=== PATIENT | female | born 1975 | race Caucasian/White ===

== ENCOUNTER 2020-09-20 14:56 | Emergency (ER) | payer MEDICAID ==
[2020-09-20] MEDS ORDERED: Zofran 4 MG/2 ML VIAL IV ONE (15:20)
[2020-09-20] MEDS ORDERED: MORPHINE SULFATE 4 MG INJ IV ONE (15:20)
[2020-09-20] MEDS ORDERED: TYLENOL 325 MG PO ONE (15:20)
[2020-09-20] MEDS ORDERED: Sodium Chloride 0.9% 1000 ML 1,000 ML IV STA (15:20)
[2020-09-20] MEDS ORDERED: MORPHINE SULFATE 4 MG INJ ONE (15:27)
[2020-09-20] MEDS ORDERED: Sodium Chloride 0.9% 1000 ML 1,000 ML ONE (15:27)
[2020-09-20] MEDS ORDERED: Zofran 4 MG/2 ML VIAL ONE (15:27)
[2020-09-20] MEDS ORDERED: TYLENOL 325 MG ONE (15:27)
[2020-09-20 15:54] LABS: Absolute Neutrophil Ct (ANC) 2.85 (1.4-6.9); BASOPHIL % 0.4 % (0.0-0.4); Basophil (Absolute #) 0.02 (0-0.4); Eosinophil % 3.4 % (0.00-5.0); Eosinophil (Absolute #) 0.16 (0-0.5); Hematocrit 43.6 % (35-47); Hemoglobin 13.4 gm/dl (12.0-16.0); Lymphocyte (Absolute #) 1.05 (1.0-4.6); Lymphocytes % 22.6 % (24.0-44.0); Mean Corpuscular Hemoglobin 29.5 pg (26-32); Mean Corpuscular Hgb Concent. 30.7 g/dl (32-36); Mean Platelet Volume 9.5 fl (7.5-11.0); Monocyte (Absolute #) 0.57 (0.0-1.3); Monocytes % 12.3 % (0.0-12.0); Neutrophil % 61.3 % (36.0-66.0); Platelet Count 227 K/mm3 (150-450); Red Blood Count 4.54 M/mm3 (4.1-5.4); Red Cell Distribution Width 12.7 % (11.5-14.0); White Blood Count 4.7 K/mm3 (4.0-10.5)
[2020-09-20 16:02] LABS: Appearance SLIGHTLY CLOUDY (CLEAR); Bacteria FEW /HPF (NEGATIVE); Bilirubin NEGATIVE (NEGATIVE); Blood MODERATE Ery/ul (0-5); Epithelial Cells RARE /HPF (FEW); Glucose NEGATIVE (NEGATIVE); Ketones NEGATIVE (NEGATIVE); Leukocyte Esterase NEGATIVE (NEGATIVE); Mucus SLIGHT /HPF (NEGATIVE); Nitrite POSITIVE (NEGATIVE); Protein,Urine Dip NEGATIVE (Negative); Specific Gravity 1.023 (1.005-1.025); Urobilinogen NEGATIVE mg/dL (0-1)
[2020-09-20 16:16] LABS: ALKALINE PHOSPHATASE 96 U/L (38-126); ANION GAP 8.9 MEQ/L (5-15); BLOOD UREA NITROGEN 14 mg/dL (7-17); CHLORIDE 102 mmol/L (98-107); Calcium 8.7 mg/dL (8.4-10.2); Carbon Dioxide 29 mmol/L (22-30); Creatinine 1 0.62 mg/dL (0.52-1.04); EST GLOMERULAR FILTRATION RATE > 60.0 ML/MIN; Glucose 100 mg/dL (74-106); LIPASE 22 U/L (23-300); SGOT/AST 24 U/L (14-36); SGPT/ALT 25 U/L (0-35); SODIUM 136 mmol/L (137-145); Total Protein 6.9 g/dL (6.3-8.2)
--- NOTE | 2020-09-20 16:32 | XRAY ---
Indication: General body ache. Comparison: None 2 view abdomen nonacute and nonobstructed with moderate diffuse fecal debris and cholecystectomy clips. Remaining solid organs and osseous structures unremarkable. Single PA chest demonstrates normal heart, lungs, and bony thorax with incidental tiny calcified granulomas.
--- NOTE | 2020-09-20 16:40 | ERPHSYRPT ---
- History of Present Illness Time Seen by Provider: 09/20/20 15:00 Source: patient Exam Limitations: no limitations Patient Subjective Stated Complaint: pt here for pain under left breast with cough started yesterday with some nasuea, she states she is worried aboout pancr eatitis Triage Nursing Assessment: pt alert, resp easy, skin w/d/p, abd soft, no edma noted Physician History: 45 years old female presented in the ER with chief complaint of generalized body ache, fatigue and tiredness since yesterday. She also reports having moderate dry cough, low-grade subjective fever and chills last night. Denies any shor tness of breath. No chest pain or palpitations. Has chronic abdominal pain which is not any worse than usual. No difficulty urination. No sore throat but has mild nasal congestion. Denies any sick contact. Did not receive Covid vaccine yet. Timing/Duration: yesterday, gradual onset, worse Cough Quality/Degree: mild, dry cough Possible Cause: no prior episodes Modifying Factors: Improves With: coughing. Worsens With: activity Associated Symptoms: fever, chills, muscle aches, nasal congestion, No chest pain/soreness, No shortness of breath Allergies/Adverse Reactions: Iodinated Contrast Media Allergy (Verified 09/20/20 15:06) Hx Tetanus, Diphtheria Vaccination/Date Given: No Hx Influenza Vaccination/Date Given: No Hx Pneumococcal Vaccination/Date Given: No Immunizations Up to Date: Yes Travel Risk - International Travel Have you traveled outside of the country in past 3 weeks: No - Coronavirus Screening Are you exhibiting any of the following symptoms?: No Symptoms: Cough: New Onset Close contact with a COVID-19 positive Pt in past 14-21 Days: No - Vaccine Status Have you recieved a Covid-19 vaccination: No - Review of Systems Constitutional: Fever, Chills, Fatigue, Weakness Eyes: No Symptoms Ears, Nose, & Throat: Nose Congestion Respiratory: Cough, No Dyspnea, No Wheezing Cardiac: No Symptoms Abdominal/Gastrointestinal: Abdominal Pain, No Nausea, No Vomiting, No Diarrhea Genitourinary Symptoms: No Symptoms Musculoskeletal: Myalgias Skin: No Symptoms Neurological: No Symptoms Psychological: No Symptoms Endocrine: No Symptoms Hematologic/Lymphatic: No Symptoms Immunological/Allergic: No Symptoms - Past Medical History Pertinent Past Medical History: Yes Endocrine Medical History: Thyroid Cancer GI Medical History: Pancreatitis Female Reproductive Disorders: Cervical Cancer - Past Surgical History Past Surgical History: Yes Gastrointestinal: Appendectomy, Cholecystectomy Female Surgical History: Hysterectomy Other Surgical History: wibble surgery - Social History Smoking Status: Current every day smoker Exposure to second hand smoke: Yes Drug Use: none Patient Lives Alone: No - Female History Hx Last Menstrual Period: hyster Hx Now: No - Nursing Vital Signs Nursing Vital Signs: Initial Vital Signs Temperature 98.5 F 09/20/20 14:58 Pulse Rate 116 H 09/20/20 14:58 Respiratory Rate 18 09/20/20 14:58 Blood Pressure 106/91 09/20/20 14:58 O2 Sat by Pulse Oximetry 100 09/20/20 14:58 Pain Scale Pain Intensity 6 - Physical Exam General Appearance: no apparent distress, alert Eye Exam: PERRL/EOMI, eyes nml inspection Ears, Nose, Throat Exam: normal ENT inspection, pharyngeal erythema Neck Exam: normal inspection, non-tender, supple, full range of motion Respiratory Exam: normal breath sounds, lungs clear, No diminished breath sounds Cardiovascular Exam: normal heart sounds, tachycardia Gastrointestinal/Abdomen Exam: soft, normal bowel sounds, No tenderness Back Exam: normal inspection, normal range of motion Extremity Exam: normal inspection, normal range of motion, pelvis stable Neurologic Exam: alert, oriented x 3, cooperative, account manager education II-XII nml as tested Skin Exam: normal color SpO2 Interpretation: normal SpO2: 100 O2 Delivery: Room Air Ordered Tests: Active Orders 24 hr Category Date Time Status IV Insertion STAT Care 09/20/20 15:20 Active NPO (ED) STAT Care 09/20/20 15:20 Active OBSTR/ACUTE ABDOMEN SERIES Stat Exams 09/20/20 15:20 Completed BLOOD CULTURE Stat Lab 09/20/20 15:40 Received CBC W DIFF Stat Lab 09/20/20 15:40 Completed CMP Stat Lab 09/20/20 15:40 Completed CULTURE,URINE Stat Lab 09/20/20 15:27 Received LIPASE Stat Lab 09/20/20 15:40 Completed Lactic Acid Stat Lab 09/20/20 15:20 Completed UA W/RFX UR CULTURE Stat Lab 09/20/20 15:27 Completed Medication Summary Discontinued Medications Generic Name Dose Route Start Last Admin Trade Name Freq PRN Reason Stop Dose Admin Acetaminophen 975 mg 09/20/20 15:20 09/20/20 15:29 Tylenol 325 Mg PO 09/20/20 15:21 975 mg STAT ONE Administration Acetaminophen Confirm 09/20/20 15:27 Tylenol 325 Mg Administered 09/20/20 15:28 Dose 975 mg .ROUTE .STK-MED ONE Ciprofloxacin 500 mg 09/20/20 16:49 09/20/20 17:03 Cipro 500 Mg PO 09/20/20 16:50 500 mg ONCE STA Administration Ciprofloxacin Confirm 09/20/20 17:01 Cipro 500 Mg Administered 09/20/20 17:02 Dose 500 mg .ROUTE .STK-MED ONE Sodium Chloride 1,000 mls @ 999 mls/hr 09/20/20 15:20 09/20/20 16:40 Sodium Chloride 0.9% 1000 Ml IV 09/20/20 16:20 Infused .Q1H1M STA Infusion Sodium Chloride Confirm 09/20/20 15:27 Sodium Chloride 0.9% 1000 Ml Administered 09/20/20 15:28 Dose 1,000 mls @ ud .ROUTE .STK-MED ONE Morphine Sulfate 4 mg 09/20/20 15:20 09/20/20 15:29 Morphine Sulfate 4 Mg Inj IV 09/20/20 15: 4 mg STAT ONE Administration Morphine Sulfate Confirm 09/20/20 15:27 Morphine Sulfate 4 Mg Inj Administered 09/20/20 15:28 Dose 4 mg .ROUTE .STK-MED ONE Ondansetron HCl 4 mg 09/20/20 15:20 09/20/20 15:29 Zofran 4 Mg/2 Ml Vial IV 09/20/20 15: 4 mg STAT ONE Administration Ondansetron HCl Confirm 09/20/20 15:27 Zofran 4 Mg/2 Ml Vial Administered 09/20/20 15:28 Dose 4 mg .ROUTE .STK-MED ONE Lab/Rad Data: Laboratory Result Diagrams 09/20/20 15:40 09/20/20 15:40 Laboratory Results 09/20/20 09/20/20 09/20/20 Range/Units 15:40 15:40 15:27 WBC 4.7 (4.0-10.5) K/mm3 RBC 4.54 (4.1-5.4) M/mm3 Hgb 13.4 (12.0-16.0) gm/dl Hct 43.6 (35-47) % MCV 96.0 (78-100) fl MCH 29.5 (26-32) pg MCHC 30.7 L (32-36) g/dl RDW 12.7 (11.5-14.0) % Plt Count 227 (150-450) K/mm3 MPV 9.5 (7.5-11.0) fl Gran % 61.3 (36.0-66.0) % Eos # (Auto) 0.16 (0-0.5) Absolute Lymphs (auto) 1.05 (1.0-4.6) Absolute Monos (auto) 0.57 (0.0-1.3) Lymphocytes % 22.6 L (24.0-44.0) % Monocytes % 12.3 H (0.0-12.0) % Eosinophils % 3.4 (0.00-5.0) % Basophils % 0.4 (0.0-0.4) % Absolute Granulocytes 2.85 (1.4-6.9) Basophils # 0.02 (0-0.4) Sodium 136 L (137-145) mmol/L Potassium 4.0 (3.5-5.1) mmol/L Chloride 102 (98-107) mmol/L Carbon Dioxide 29 (22-30) mmol/L Anion Gap 8.9 (5-15) MEQ/L BUN 14 (7-17) mg/dL Creatinine 0.62 (0.52-1.04) mg/dL Estimated GFR > 60.0 ML/MIN Glucose 100 (74-106) mg/dL Lactic Acid (0.4-2.0) Calcium 8.7 (8.4-10.2) mg/dL Total Bilirubin 0.30 (0.2-1.3) mg/dL AST 24 (14-36) U/L ALT 25 (0-35) U/L Alkaline Phosphatase 96 (38-126) U/L Serum Total Protein 6.9 (6.3-8.2) g/dL Albumin 4.0 (3.5-5.0) g/dL Lipase 22 L (23-300) U/L Urine Color YELLOW (YELLOW) Urine Appearance SLIGHTLY CLOUDY (CLEAR) Urine pH 5.0 (5-6) Ur Specific [place] 1.023 (1.005-1.025) Urine Protein NEGATIVE (Negative) Urine Ketones NEGATIVE (NEGATIVE) Urine Blood MODERATE (0-5) Paulo/ul Urine Nitrite POSITIVE (NEGATIVE) Urine Bilirubin NEGATIVE (NEGATIVE) Urine Urobilinogen NEGATIVE (0-1) mg/dL Ur Leukocyte Esterase NEGATIVE (NEGATIVE) Urine WBC (Auto) 6-10 (0-5) /HPF Urine RBC (Auto) 3-5 (0-2) /HPF U Epithel Cells (Auto) RARE (FEW) /HPF Urine Bacteria (Auto) FEW (NEGATIVE) /HPF Urine Mucus (Auto) SLIGHT (NEGATIVE) /HPF Urine Culture Reflexed YES (NO) Urine Glucose NEGATIVE (NEGATIVE) mg/dL 09/20/20 Range/Units 15:20 WBC (4.0-10.5) K/mm3 RBC (4.1-5.4) M/mm3 Hgb (12.0-16.0) gm/dl Hct (35-47) % MCV (78-100) fl MCH (26-32) pg MCHC (32-36) g/dl RDW (11.5-14.0) % Plt Count (150-450) K/mm3 MPV (7.5-11.0) fl Gran % (36.0-66.0) % Eos # (Auto) (0-0.5) Absolute Lymphs (auto) (1.0-4.6) Absolute Monos (auto) (0.0-1.3) Lymphocytes % (24.0-44.0) % Monocytes % (0.0-12.0) % Eosinophils % (0.00-5.0) % Basophils % (0.0-0.4) % Absolute Granulocytes (1.4-6.9) Basophils # (0-0.4) Sodium (137-145) mmol/L Potassium (3.5-5.1) mmol/L Chloride (98-107) mmol/L Carbon Dioxide (22-30) mmol/L Anion Gap (5-15) MEQ/L BUN (7-17) mg/dL Creatinine (0.52-1.04) mg/dL Estimated GFR ML/MIN Glucose (74-106) mg/dL Lactic Acid 1.2 (0.4-2.0) Calcium (8.4-10.2) mg/dL Total Bilirubin (0.2-1.3) mg/dL AST (14-36) U/L ALT (0-35) U/L Alkaline Phosphatase (38-126) U/L Serum Total Protein (6.3-8.2) g/dL Albumin (3.5-5.0) g/dL Lipase (23-300) U/L Urine Color (YELLOW) Urine Appearance (CLEAR) Urine pH (5-6) Ur Specific [place] (1.005-1.025) Urine Protein (Negative) Urine Ketones (NEGATIVE) Urine Blood (0-5) Paulo/ul Urine Nitrite (NEGATIVE) Urine Bilirubin (NEGATIVE) Urine Urobilinogen (0-1) mg/dL Ur Leukocyte Esterase (NEGATIVE) Urine WBC (Auto) (0-5) /HPF Urine RBC (Auto) (0-2) /HPF U Epithel Cells (Auto) (FEW) /HPF Urine Bacteria (Auto) (NEGATIVE) /HPF Urine Mucus (Auto) (NEGATIVE) /HPF Urine Culture Reflexed (NO) Urine Glucose (NEGATIVE) mg/dL - Progress Progress: improved, re-examined Air Movement: good Progress Note: 09/20/20 17:36 45 years old is evaluated for generalized body aches, fatigue and tiredness. She is given fluid bolus and symptomatic treatment for pain, on reevaluation patient is sleeping comfortably. Work-up is grossly negative except for some element of UTI and started on Cipro. She might have viral etiology symptoms and COVID-19 testing is obtained. She is not in distress, nontoxic appearance, do not think patient needs to be admitted or needs any further work-up in the ER and is stable for discharge with outpatient follow-up. Discussed signs symptoms of worsening needing return to ER which she seemed understanding. Blood Culture(s) Obtained: Yes Antibiotics given: Yes Counseled pt/family regarding: lab results, diagnosis, need for follow-up, rad results - Departure Departure Disposition: Home Clinical Impression: Acute UTI, Myalgia Condition: Stable Critical Care Time: No Referrals: NATALI ROBLES [Primary Care Provider] - (1-2 days for reevaluation) Instructions: Cough, Adult (DC), Viral Syndrome (DC) Additional Instructions: Drink plenty of fluids. Take Tylenol/ibuprofen as needed. Follow contact/droplet precautions until your COVID-19 test is back. Follow-up with primary care physician for reevaluation. Return to ER for any worsening. Prescriptions: Ciprofloxacin [Cipro 500 MG] 500 mg PO BID #14 tablet
[2020-09-20] MEDS ORDERED: Cipro 500 MG PO STA (16:49)
[2020-09-20] MEDS ORDERED: Cipro 500 MG ONE (17:01)
[2020-09-20 17:02] VITALS: BP 117/86; PULSE 80
[2020-09-20 17:38] VITALS: O2SAT 100
== END 2020-09-20 18:36 | disposition home or self-care (01) ==
LOC: ED 14:56
DX: N39.0 Urinary tract infection, site not specified (principal)
CPT/HCPCS: 36000; 36415; 74022; 80053; 81001; 83605; 83690; 85025; 87040; 87077; 87086; 87186; 96360; 96374; 96375; 99284; U0003; J2270; J2405; A9270-GY

== ENCOUNTER 2020-10-04 10:19 | Emergency (ER) | payer MEDICAID ==
[2020-10-04] MEDS ORDERED: Sodium Chloride 0.9% 1000 ML 1,000 ML IV STA (10:48)
[2020-10-04] MEDS ORDERED: MORPHINE SULFATE 4 MG INJ IV ONE (10:48)
[2020-10-04] MEDS ORDERED: Zofran 4 MG/2 ML VIAL IV ONE (10:48)
[2020-10-04] MEDS ORDERED: Zofran 4 MG/2 ML VIAL ONE (10:59)
[2020-10-04] MEDS ORDERED: MORPHINE SULFATE 4 MG INJ ONE (10:59)
[2020-10-04] MEDS ORDERED: Sodium Chloride 0.9% 1000 ML 1,000 ML ONE (10:59)
[2020-10-04 11:10] LABS: Absolute Neutrophil Ct (ANC) 3.19 (1.4-6.9); BASOPHIL % 0.2 % (0.0-0.4); Basophil (Absolute #) 0.01 (0-0.4); Eosinophil % 2.4 % (0.00-5.0); Eosinophil (Absolute #) 0.12 (0-0.5); Hematocrit 43.6 % (35-47); Hemoglobin 13.5 gm/dl (12.0-16.0); Lymphocyte (Absolute #) 1.37 (1.0-4.6); Lymphocytes % 27.5 % (24.0-44.0); Mean Corpuscular Hemoglobin 29.4 pg (26-32); Mean Platelet Volume 10.1 fl (7.5-11.0); Monocyte (Absolute #) 0.29 (0.0-1.3); Monocytes % 5.8 % (0.0-12.0); Neutrophil % 64.1 % (36.0-66.0); Platelet Count 305 K/mm3 (150-450); Red Blood Count 4.59 M/mm3 (4.1-5.4); Red Cell Distribution Width 12.6 % (11.5-14.0)
[2020-10-04 11:12] LABS: Appearance CLOUDY (CLEAR); Bilirubin NEGATIVE (NEGATIVE); Blood SMALL Ery/ul (0-5); Epithelial Cells MODERATE /HPF (FEW); Glucose NEGATIVE (NEGATIVE); Ketones TRACE (NEGATIVE); Leukocyte Esterase NEGATIVE (NEGATIVE); Mucus SLIGHT /HPF (NEGATIVE); Nitrite NEGATIVE (NEGATIVE); Protein,Urine Dip NEGATIVE (Negative); Specific Gravity 1.027 (1.005-1.025); Urobilinogen 2 mg/dL (0-1)
[2020-10-04 11:25] LABS: ALBUMIN 4.5 g/dL (3.5-5.0); ALKALINE PHOSPHATASE 81 U/L (38-126); AMYLASE 49 U/L (30-110); ANION GAP 12.6 MEQ/L (5-15); BLOOD UREA NITROGEN 16 mg/dL (7-17); CHLORIDE 104 mmol/L (98-107); Carbon Dioxide 28 mmol/L (22-30); Creatinine 1 0.65 mg/dL (0.52-1.04); EST GLOMERULAR FILTRATION RATE > 60.0 ML/MIN; Glucose 104 mg/dL (74-106); LIPASE 40 U/L (23-300); Potassium 4.2 mmol/L (3.5-5.1); SGOT/AST 23 U/L (14-36); SGPT/ALT 19 U/L (0-35); SODIUM 140 mmol/L (137-145)
--- NOTE | 2020-10-04 11:26 | XRAY ---
Indication: Abdomen/left flank pain. History of cervical/uterine and thyroid cancer. Multiple contiguous axial images obtained through the abdomen and pelvis without contrast. Comparison: None Lung bases demonstrates a few tiny calcified granulomas. No infiltrate or effusion. Heart is not enlarged. Reported Whipple procedure, cholecystectomy, appendectomy, and hysterectomy. Stomach is distended with food/fluid. Noncontrasted bowel loops nonobstructed. Moderate diffuse scattered colonic fecal debris throughout. No free fluid/air. Remaining liver, pancreas, spleen, adrenal glands, kidneys, ureters, bladder, and aorta are unremarkable for noncontrast exam. Osseous structures intact with mild L4-L5 degenerative disc disease. No ventral or inguinal hernias. Impression: 1. Diffuse fecal stasis, L4-L5 degenerative disc disease, and old granulomatous disease. 2. Remaining CT abdomen/pelvis without contrast exam is negative.
--- NOTE | 2020-10-04 11:41 | ERPHSYRPT ---
- History of Present Illness Time Seen by Provider: 10/04/20 10:23 Historian: patient Exam Limitations: no limitations Patient Subjective Stated Complaint: abd pain x2 days Triage Nursing Assessment: pt to ED c/o abd pain that originates in middle of abd and radiates around to L side and back/ "I felt this same way last time my stents needed replaced." pt reports whipple procedure done 2017 and stents last replaced 8 months ago. rates 9/10 pain that worsens with deep breaths. also c/o NV onset yesterday. Physician History: 45 years old female with history of Whipple procedure presented in the ER with epigastric and left-sided abdominal pain for the last 2 to 3 days, moderate to severe intensity, sharp in nature, nonradiating, constant without vomiting but has nausea. Denies any constipation or diarrhea. No fever or chills reported. Patient reports having similar symptoms few months back when she needed stent placement in [place]. Timing/Duration: day(s) (2), constant, gradual onset, worse Activities at Onset: rest Quality: cramping, sharpness Abdominal Pain Onset Location: LUQ, LLQ, epigastric Pain Radiation: no radiation Severity of Pain-Max: moderate Severity of Pain-Current: moderate Modifying Factors: Improves With: rest. Worsens With: coughing, movement, palpation Associated Symptoms: nausea, No vomiting Previous symptoms: same symptoms as today Allergies/Adverse Reactions: Iodinated Contrast Media Allergy (Verified 10/04/20 10:29) Home Medications: No Reportable Medications [No Reported Medications] 10/04/20 [History] Hx Tetanus, Diphtheria Vaccination/Date Given: Yes Hx Influenza Vaccination/Date Given: Yes Hx Pneumococcal Vaccination/Date Given: No Immunizations Up to Date: Yes Travel Risk - International Travel Have you traveled outside of the country in past 3 weeks: No - Coronavirus Screening Are you exhibiting any of the following symptoms?: Yes Symptoms: Vomiting/Diarrhea Close contact with a COVID-19 positive Pt in past 14-21 Days: No - Vaccine Status Have you recieved a Covid-19 vaccination: No - Review of Systems Constitutional: No Symptoms Eyes: No Symptoms Ears, Nose, & Throat: No Symptoms Respiratory: No Symptoms Cardiac: No Symptoms Abdominal/Gastrointestinal: Abdominal Pain, Nausea Genitourinary Symptoms: No Symptoms Musculoskeletal: No Symptoms Skin: No Symptoms Neurological: No Symptoms Psychological: No Symptoms Endocrine: No Symptoms Hematologic/Lymphatic: No Symptoms Immunological/Allergic: No Symptoms - Past Medical History Pertinent Past Medical History: Yes Endocrine Medical History: Thyroid Cancer GI Medical History: Pancreatitis Female Reproductive Disorders: Cervical Cancer - Past Surgical History Past Surgical History: Yes Gastrointestinal: Appendectomy, Cholecystectomy Female Surgical History: Hysterectomy Other Surgical History: whipple surgery - Social History Smoking Status: Light tobacco smoker How long have you smoked: years Exposure to second hand smoke: Yes Drug Use: none Patient Lives Alone: No - Female History Hx Now: (unkn) - Nursing Vital Signs Nursing Vital Signs: Initial Vital Signs Temperature 97.9 F 10/04/20 10:29 Pulse Rate 112 H 10/04/20 10:29 Respiratory Rate 20 10/04/20 10:29 Blood Pressure 148/85 10/04/20 10:29 O2 Sat by Pulse Oximetry 94 L 10/04/20 10:29 Pain Scale Pain Intensity 0 - Physical Exam General Appearance: no apparent distress, alert Eye Exam: eyes nml inspection Ears, Nose, Throat Exam: normal ENT inspection, pharynx normal Neck Exam: normal inspection, non-tender, full range of motion Respiratory Exam: normal breath sounds, lungs clear Cardiovascular Exam: normal heart sounds, tachycardia Back Exam: normal inspection, normal range of motion, No CVA tenderness Extremity Exam: normal inspection, normal range of motion Neurologic Exam: alert, oriented x 3, cooperative Skin Exam: normal color SpO2 Interpretation: normal SpO2: 95 O2 Delivery: Room Air Ordered Tests: Active Orders 24 hr Category Date Time Status IV Insertion STAT Care 10/04/20 10:48 Completed NPO (ED) STAT Care 10/04/20 10:48 Completed ABDOMEN AND PELVIS W/0 CONTRAS [CT] Stat Exams 10/04/20 10:49 Completed AMYLASE Stat Lab 10/04/20 10:30 Completed CBC W DIFF Stat Lab 10/04/20 10:30 Completed CMP Stat Lab 10/04/20 10:30 Completed LIPASE Stat Lab 10/04/20 10:30 Completed UA W/RFX UR CULTURE Stat Lab 10/04/20 10:58 Completed Medication Summary Discontinued Medications Generic Name Dose Route Start Last Admin Trade Name Freq PRN Reason Stop Dose Admin Sodium Chloride 1,000 mls @ 999 mls/hr 10/04/20 10:48 10/04/20 12:28 Sodium Chloride 0.9% 1000 Ml IV 10/04/20 11:48 Infused .Q1H1M STA Infusion Sodium Chloride Confirm 10/04/20 10:59 Sodium Chloride 0.9% 1000 Ml Administered 10/04/20 11:00 Dose 1,000 mls @ ud .ROUTE .STK-MED ONE Morphine Sulfate 4 mg 10/04/20 10:48 10/04/20 11:00 Morphine Sulfate 4 Mg Inj IV 10/04/20 10:49 4 mg STAT ONE Administration Morphine Sulfate Confirm 10/04/20 10:59 Morphine Sulfate 4 Mg Inj Administered 10/04/20 11:00 Dose 4 mg .ROUTE .STK-MED ONE Ondansetron HCl 4 mg 10/04/20 10:48 10/04/20 11:00 Zofran 4 Mg/2 Ml Vial IV 10/04/20 10:49 4 mg STAT ONE Administration Ondansetron HCl Confirm 10/04/20 10:59 Zofran 4 Mg/2 Ml Vial Administered 10/04/20 11:00 Dose 4 mg .ROUTE .STK-MED ONE Lab/Rad Data: Laboratory Result Diagrams 10/04/20 10:30 10/04/20 10:30 Laboratory Results 10/04/20 10/04/20 10/04/20 Range/Units 10:58 10:30 10:30 WBC 5.0 (4.0-10.5) K/mm3 RBC 4.59 (4.1-5.4) M/mm3 Hgb 13.5 (12.0-16.0) gm/dl Hct 43.6 (35-47) % MCV 95.0 (78-100) fl MCH 29.4 (26-32) pg MCHC 31.0 L (32-36) g/dl RDW 12.6 (11.5-14.0) % Plt Count 305 (150-450) K/mm3 MPV 10.1 (7.5-11.0) fl Gran % 64.1 (36.0-66.0) % Eos # (Auto) 0.12 (0-0.5) Absolute Lymphs (auto) 1.37 (1.0-4.6) Absolute Monos (auto) 0.29 (0.0-1.3) Lymphocytes % 27.5 (24.0-44.0) % Monocytes % 5.8 (0.0-12.0) % Eosinophils % 2.4 (0.00-5.0) % Basophils % 0.2 (0.0-0.4) % Absolute Granulocytes 3.19 (1.4-6.9) Basophils # 0.01 (0-0.4) Sodium 140 (137-145) mmol/L Potassium 4.2 (3.5-5.1) mmol/L Chloride 104 (98-107) mmol/L Carbon Dioxide 28 (22-30) mmol/L Anion Gap 12.6 (5-15) MEQ/L BUN 16 (7-17) mg/dL Creatinine 0.65 (0.52-1.04) mg/dL Estimated GFR > 60.0 ML/MIN Glucose 104 (74-106) mg/dL Calcium 9.0 (8.4-10.2) mg/dL Total Bilirubin 0.30 (0.2-1.3) mg/dL AST 23 (14-36) U/L ALT 19 (0-35) U/L Alkaline Phosphatase 81 (38-126) U/L Serum Total Protein 7.0 (6.3-8.2) g/dL Albumin 4.5 (3.5-5.0) g/dL Amylase 49 (30-110) U/L Lipase 40 (23-300) U/L Urine Color YELLOW (YELLOW) Urine Appearance CLOUDY (CLEAR) Urine pH 5.0 (5-6) Ur Specific [place] 1.027 (1.005-1.025) Urine Protein NEGATIVE (Negative) Urine Ketones TRACE (NEGATIVE) Urine Blood SMALL (0-5) Paulo/ul Urine Nitrite NEGATIVE (NEGATIVE) Urine Bilirubin NEGATIVE (NEGATIVE) Urine Urobilinogen 2 (0-1) mg/dL Ur Leukocyte Esterase NEGATIVE (NEGATIVE) Urine WBC (Auto) 3-5 (0-5) /HPF Urine RBC (Auto) 6-10 (0-2) /HPF U Epithel Cells (Auto) MODERATE (FEW) /HPF Urine Bacteria (Auto) NONE (NEGATIVE) /HPF Urine Mucus (Auto) SLIGHT (NEGATIVE) /HPF Urine Culture Reflexed NO (NO) Urine Glucose NEGATIVE (NEGATIVE) mg/dL - Progress Progress: improved Progress Note: 10/04/20 11:39 Patient improved with symptomatic treatment, negative work-up for acute abdomen including CT abdomen pelvis. Does have constipation which could be contributing to her symptoms. Recommended supportive care and outpatient follow-up. Counseled pt/family regarding: lab results, diagnosis, need for follow-up, rad results - Departure Departure Disposition: Home Clinical Impression: Left sided abdominal pain Constipation Qualifiers: Constipation type: unspecified constipation type Qualified Code(s): K59.00 - Constipation, unspecified Condition: Stable Critical Care Time: No Referrals: NATALI ROBLES [Primary Care Provider] - Follow Up with PCP/3 days () Instructions: Acute Abdomen (Belly Pain), Adult (DC) Additional Instructions: Take Tyleno as needed for pain. Take daily MiraLAX. Follow-up with primary care for reevaluation. Return to ER for intractable abdominal pain or if develop vomiting/fever chills etc.
[2020-10-04 12:27] VITALS: BP 136/85; PULSE 95
[2020-10-04 22:35] VITALS: O2SAT 95
== END 2020-10-04 12:28 | disposition home or self-care (01) ==
LOC: ED 10:19
DX: R10.9 Unspecified abdominal pain (principal); K59.00 Constipation, unspecified
CPT/HCPCS: 36000; 36415; 74176; 80053; 81001; 82150; 83690; 85025; 96360; 96374; 96375; 99284; J2270; J2405

== ENCOUNTER 2021-06-21 17:49 | Emergency (ER) | payer MEDICAID ==
[2021-06-21] MEDS ORDERED: Sodium Chloride 0.9% 1000 ML 1,000 ML IV STA (18:06)
[2021-06-21] MEDS ORDERED: TORAdol 30 mg Injection IV ONE (18:06)
[2021-06-21] MEDS ORDERED: Sodium Chloride 0.9% 1000 ML 1,000 ML ONE (18:08)
[2021-06-21] MEDS ORDERED: TORAdol 30 mg Injection ONE (18:08)
--- NOTE | 2021-06-21 18:12 | ERPHSYRPT ---
- History of Present Illness Historian: patient Exam Limitations: no limitations Patient Subjective Stated Complaint: pt here for left side and pain that radiates to back for 2 days with n/v. Triage Nursing Assessment: pt alert, walked in, resp easy, skin w/d/p, abd soft , no edema, face mask in place Physician History: 46 yo wf w generalized, stabbing abdominal pain x 1 day. Pt has had N/V/Coffee ground emesis/dark stool without fever/diarrhea/cough/coryza/dysuria/hematuria. Pt had a Whipple procedure in 2017 in [place], [place] due to chronic pancreatitis. Pain is rated 9/10 w radiation to her back. Timing/Duration: yesterday Activities at Onset: rest Quality: sharpness, stabbing Abdominal Pain Onset Location: generalized abdomen Pain Radiation: back Severity of Pain-Max: severe Severity of Pain-Current: severe Modifying Factors: Improves With: nothing Associated Symptoms: back, loss of appetite, nausea, vomiting, No chest pain, No diaphoresis, No diarrhea, No fever/chills, No fatigue, No headache, No heart burn, No neck pain, No rash, No shortness of breath, No syncope, No weakness Previous symptoms: same symptoms as today Allergies/Adverse Reactions: Iodinated Contrast Media Allergy (Verified 06/21/21 18:01) Hx Tetanus, Diphtheria Vaccination/Date Given: Yes Hx Influenza Vaccination/Date Given: Yes Hx Pneumococcal Vaccination/Date Given: No Immunizations Up to Date: Yes Travel Risk - International Travel Have you traveled outside of the country in past 3 weeks: No - Coronavirus Screening Are you exhibiting any of the following symptoms?: No Close contact with a COVID-19 positive Pt in past 14-21 Days: No - Vaccine Status Have you recieved a Covid-19 vaccination: No - Review of Systems Constitutional: No Symptoms Eyes: No Symptoms Ears, Nose, & Throat: No Symptoms Respiratory: No Symptoms Cardiac: No Symptoms Abdominal/Gastrointestinal: Abdominal Pain, Nausea, Vomiting, Melena, Appetite Changes, No Diarrhea, No Constipation, No Hematemesis, No Hematochezia, No Dysphagia Genitourinary Symptoms: No Symptoms Musculoskeletal: No Symptoms Skin: No Symptoms Neurological: No Symptoms Psychological: No Symptoms Endocrine: No Symptoms Hematologic/Lymphatic: No Symptoms Immunological/Allergic: No Symptoms - Past Medical History Pertinent Past Medical History: Yes Endocrine Medical History: Thyroid Cancer GI Medical History: Pancreatitis Female Reproductive Disorders: Cervical Cancer - Past Surgical History Past Surgical History: Yes Gastrointestinal: Appendectomy, Cholecystectomy Female Surgical History: Hysterectomy Other Surgical History: whipple surgery - Social History Smoking Status: Light tobacco smoker How long have you smoked: years Exposure to second hand smoke: Yes Drug Use: marijuana Patient Lives Alone: No - Female History Hx Last Menstrual Period: hyster Hx Now: No - Nursing Vital Signs Nursing Vital Signs: Initial Vital Signs Temperature 97.5 F 06/21/21 17:54 Pulse Rate 83 06/21/21 17:54 Respiratory Rate 18 06/21/21 17:54 Blood Pressure 152/112 06/21/21 17:54 O2 Sat by Pulse Oximetry 99 06/21/21 17:54 Pain Scale Pain Intensity 5 Hypertensive - Physical Exam General Appearance: no apparent distress, anxiety Eye Exam: PERRL/EOMI, eyes nml inspection Ears, Nose, Throat Exam: normal ENT inspection, TMs normal, pharynx normal, moist mucous membranes Neck Exam: normal inspection, non-tender, supple, full range of motion, No meningismus, No mass, No Brudzinski, No Kernig's, No carotid bruit Respiratory Exam: normal breath sounds, lungs clear, airway intact Cardiovascular Exam: regular rate/rhythm, normal heart sounds, normal peripheral pulses, capillary refill <2 sec, No murmur Gastrointestinal/Abdomen Exam: soft, normal bowel sounds, tenderness (Diffuse TTP w guarding/No rebound), No distention Back Exam: normal inspection, normal range of motion Extremity Exam: normal inspection, normal range of motion Neurologic Exam: alert, oriented x 3, cooperative, tax adjuster II-XII nml as tested, normal mood/affect, nml cerebellar function, sensation nml Skin Exam: normal color, warm, dry, No rash Lymphatic Exam: No adenopathy SpO2 Interpretation: normal SpO2: 99 O2 Delivery: Room Air - Course Nursing assessment & vital signs reviewed: Yes - CT Exams Abdomen/Pelvis CT Interpretation: Discussed w/radiologist (CT ab-pelvis wo-diffuse fecal stasis/chronic pancreatic calcifications/Nothing acute) Ordered Tests: Active Orders 24 hr Category Date Time Status ABDOMEN AND PELVIS W/0 CONTRAS [CT] Stat Exams 06/21/21 18:59 Taken AMYLASE Stat Lab 06/21/21 18:00 Completed Alcohol [ETHYL ALCOHOL] Stat Lab 06/21/21 19:20 Completed CBC W DIFF Stat Lab 06/21/21 18:00 Completed CMP Stat Lab 06/21/21 18:00 Completed CULTURE,URINE Stat Lab 06/21/21 18:02 Received LIPASE Stat Lab 06/21/21 18:00 Completed TROPONIN Q3H Lab 06/21/21 18:00 Completed UA W/RFX UR CULTURE Stat Lab 06/21/21 18:02 Completed Urine Triage Profile Stat Lab 06/21/21 18:03 Completed Medication Summary Discontinued Medications Generic Name Dose Route Start Last Admin Trade Name Aliza PRN Reason Stop Dose Admin Fentanyl Citrate 100 mcg 06/21/21 18:42 06/21/21 18:43 Fentanyl Citrate 100 Mcg/2 Ml* Vial IV 06/21/21 18:43 100 mcg STAT ONE Administration Fentanyl Citrate Confirm 06/21/21 18:42 Fentanyl Citrate 100 Mcg/2 Ml* Vial Administered 06/21/21 18:43 Dose 100 mcg .ROUTE .STK-MED ONE Sodium Chloride 1,000 mls @ 999 mls/hr 06/21/21 18:06 06/21/21 19:14 Sodium Chloride 0.9% 1000 Ml IV 06/21/21 19:06 Infused .Q1H1M STA Infusion Sodium Chloride Confirm 06/21/21 18:08 Sodium Chloride 0.9% 1000 Ml Administered 06/21/21 18:09 Dose 1,000 mls @ ud .ROUTE .STK-MED ONE Ketorolac Tromethamine 15 mg 06/21/21 18:06 06/21/21 18:10 Ketorolac Tromethamine 30 Mg/Ml Inj IV 06/21/21 18:07 15 mg STAT ONE Administration Ketorolac Tromethamine Confirm 06/21/21 18:08 Ketorolac Tromethamine 30 Mg/Ml Inj Administered 06/21/21 18:09 Dose 30 mg .ROUTE .STK-MED ONE Ondansetron HCl 4 mg 06/21/21 18:13 06/21/21 18:16 Ondansetron Hcl 4 Mg/2 Ml Vial IV 06/21/21 18:14 4 mg STAT ONE Administration Ondansetron HCl Confirm 06/21/21 18:14 Ondansetron Hcl 4 Mg/2 Ml Vial Administered 06/21/21 18:15 Dose 4 mg .ROUTE .STK-MED ONE Pantoprazole Sodium 40 mg 06/21/21 18:13 06/21/21 18:16 Pantoprazole 40 Mg Vial IV 06/21/21 18:14 40 mg STAT ONE Administration Pantoprazole Sodium Confirm 06/21/21 18:14 Pantoprazole 40 Mg Vial Administered 06/21/21 18:15 Dose 40 mg IV .STK-MED ONE Lab/Rad Data: Laboratory Result Diagrams 06/21/21 18:00 06/21/21 18:00 Laboratory Results 06/21/21 06/21/21 06/21/21 Range/Units 19:20 18:03 18:02 WBC (4.0-10.5) K/mm3 RBC (4.1-5.4) M/mm3 Hgb (12.0-16.0) gm/dl Hct (35-47) % MCV (78-100) fl MCH (26-32) pg MCHC (32-36) g/dl RDW (11.5-14.0) % Plt Count (150-450) K/mm3 MPV (7.5-11.0) fl Gran % (36.0-66.0) % Eos # (Auto) (0-0.5) Absolute Lymphs (auto) (1.0-4.6) Absolute Monos (auto) (0.0-1.3) Lymphocytes % (24.0-44.0) % Monocytes % (0.0-12.0) % Eosinophils % (0.00-5.0) % Basophils % (0.0-0.4) % Absolute Granulocytes (1.4-6.9) Basophils # (0-0.4) Sodium (137-145) mmol/L Potassium (3.5-5.1) mmol/L Chloride (98-107) mmol/L Carbon Dioxide (22-30) mmol/L Anion Gap (5-15) MEQ/L BUN (7-17) mg/dL Creatinine (0.52-1.04) mg/dL Estimated GFR ML/MIN Glucose (74-106) mg/dL Calcium (8.4-10.2) mg/dL Total Bilirubin (0.2-1.3) mg/dL AST (14-36) U/L ALT (0-35) U/L Alkaline Phosphatase (38-126) U/L Troponin I (0.000-0.034) ng/mL Serum Total Protein (6.3-8.2) g/dL Albumin (3.5-5.0) g/dL Amylase (30-110) U/L Lipase (23-300) U/L Urine Color YELLOW (YELLOW) Urine Appearance SLIGHTLY CLOUDY (CLEAR) Urine pH 5.0 (5-6) Ur Specific [place] 1.025 (1.005-1.025) Urine Protein 30 (Negative) Urine Ketones NEGATIVE (NEGATIVE) Urine Blood MODERATE (0-5) Paulo/ul Urine Nitrite NEGATIVE (NEGATIVE) Urine Bilirubin NEGATIVE (NEGATIVE) Urine Urobilinogen 2 (0-1) mg/dL Ur Leukocyte Esterase TRACE (NEGATIVE) Urine WBC (Auto) 6-10 (0-5) /HPF Urine RBC (Auto) 6-10 (0-2) /HPF U Epithel Cells (Auto) RARE (FEW) /HPF Urine Bacteria (Auto) FEW (NEGATIVE) /HPF Urine Mucus (Auto) SLIGHT (NEGATIVE) /HPF Urine Culture Reflexed YES (NO) Urine Glucose NEGATIVE (NEGATIVE) mg/dL Urine Opiates Level NEGATIVE (NEGATIVE) Ur Methadone NEGATIVE (NEGATIVE) Urine Barbiturates NEGATIVE (NEGATIVE) Ur Phencyclidine (PCP) NEGATIVE (NEGATIVE) Urine Amphetamine POSITIVE (NEGATIVE) U Benzodiazepine Level NEGATIVE (NEGATIVE) Urine Cocaine NEGATIVE (NEGATIVE) Urine Marijuana (THC) POSITIVE (NEGATIVE) Ethyl Alcohol < 10 (0-10) mg/dL 06/21/21 06/21/21 06/21/21 Range/Units 18:00 18:00 18:00 WBC 7.9 (4.0-10.5) K/mm3 RBC 4.85 (4.1-5.4) M/mm3 Hgb 14.6 (12.0-16.0) gm/dl Hct 44.5 (35-47) % MCV 91.8 (78-100) fl MCH 30.1 (26-32) pg MCHC 32.8 (32-36) g/dl RDW 12.8 (11.5-14.0) % Plt Count 315 (150-450) K/mm3 MPV 9.6 (7.5-11.0) fl Gran % 64.5 (36.0-66.0) % Eos # (Auto) 0.18 (0-0.5) Absolute Lymphs (auto) 1.90 (1.0-4.6) Absolute Monos (auto) 0.71 (0.0-1.3) Lymphocytes % 24.1 (24.0-44.0) % Monocytes % 9.0 (0.0-12.0) % Eosinophils % 2.3 (0.00-5.0) % Basophils % 0.1 (0.0-0.4) % Absolute Granulocytes 5.09 (1.4-6.9) Basophils # 0.01 (0-0.4) Sodium 138 (137-145) mmol/L Potassium 3.7 (3.5-5.1) mmol/L Chloride 97 L (98-107) mmol/L Carbon Dioxide 28 (22-30) mmol/L Anion Gap 16.5 H (5-15) MEQ/L BUN 12 (7-17) mg/dL Creatinine 1.13 H (0.52-1.04) mg/dL Estimated GFR 54.6 ML/MIN Glucose 122 H (74-106) mg/dL Calcium 9.5 (8.4-10.2) mg/dL Total Bilirubin 0.80 (0.2-1.3) mg/dL AST 21 (14-36) U/L ALT 25 (0-35) U/L Alkaline Phosphatase 102 (38-126) U/L Troponin I < 0.012 (0.000-0.034) ng/mL Serum Total Protein 7.6 (6.3-8.2) g/dL Albumin 4.8 (3.5-5.0) g/dL Amylase 41 (30-110) U/L Lipase 156 (23-300) U/L Urine Color (YELLOW) Urine Appearance (CLEAR) Urine pH (5-6) Ur Specific [place] (1.005-1.025) Urine Protein (Negative) Urine Ketones (NEGATIVE) Urine Blood (0-5) Paulo/ul Urine Nitrite (NEGATIVE) Urine Bilirubin (NEGATIVE) Urine Urobilinogen (0-1) mg/dL Ur Leukocyte Esterase (NEGATIVE) Urine WBC (Auto) (0-5) /HPF Urine RBC (Auto) (0-2) /HPF U Epithel Cells (Auto) (FEW) /HPF Urine Bacteria (Auto) (NEGATIVE) /HPF Urine Mucus (Auto) (NEGATIVE) /HPF Urine Culture Reflexed (NO) Urine Glucose (NEGATIVE) mg/dL Urine Opiates Level (NEGATIVE) Ur Methadone (NEGATIVE) Urine Barbiturates (NEGATIVE) Ur Phencyclidine (PCP) (NEGATIVE) Urine Amphetamine (NEGATIVE) U Benzodiazepine Level (NEGATIVE) Urine Cocaine (NEGATIVE) Urine Marijuana (THC) (NEGATIVE) Ethyl Alcohol (0-10) mg/dL - Progress Progress: improved Progress Note: 06/21/21 18:19 Inspect Percocet 5 #15 10/24/19 06/21/21 20:03 15mg IV Toradol 1L NS bolus 40mg IV Protonix 4mg IV Zofran 100umg IV Fentanyl 06/21/21 20:03 06/21/21 20:04 Counseled pt/family regarding: drug and/or alcohol abuse, lab results, diagnosis, need for follow-up, rad results - Departure Departure Disposition: Home Clinical Impression: UTI (urinary tract infection), Constipation, Abdominal pain, Substance abuse Condition: Stable Critical Care Time: No Referrals: NATALI ROBLES [NON-STAFF PHY W/O PRIVILEGES] - Follow up/PCP as directed Instructions: Urinary Tract Infection, Adult (DC), Acute Abdomen (Belly Pain), Adult (DC) Additional Instructions: Start Bactrim twice a day Follow up with your family MD or surgeon in 1-2 days Try a mild laxative Return to ER for increasing pain or temperature greater than 100.5 Prescriptions: Smz/Tmp Ds Tablet [Bactrim Ds Tablet] 1 tab PO Q12H 5 Days #10 tablet
[2021-06-21 18:13] LABS: Absolute Neutrophil Ct (ANC) 5.09 (1.4-6.9); Basophil (Absolute #) 0.01 (0-0.4); Eosinophil % 2.3 % (0.00-5.0); Eosinophil (Absolute #) 0.18 (0-0.5); Hematocrit 44.5 % (35-47); Hemoglobin 14.6 gm/dl (12.0-16.0); Lymphocytes % 24.1 % (24.0-44.0); Mean Cell Volume 91.8 fl (78-100); Mean Corpuscular Hemoglobin 30.1 pg (26-32); Mean Corpuscular Hgb Concent. 32.8 g/dl (32-36); Mean Platelet Volume 9.6 fl (7.5-11.0); Monocyte (Absolute #) 0.71 (0.0-1.3); Neutrophil % 64.5 % (36.0-66.0); Platelet Count 315 K/mm3 (150-450); Red Blood Count 4.85 M/mm3 (4.1-5.4); Red Cell Distribution Width 12.8 % (11.5-14.0); White Blood Count 7.9 K/mm3 (4.0-10.5)
[2021-06-21] MEDS ORDERED: PROTONIX 40 MG IV IV ONE ×2 (18:13→18:14)
[2021-06-21] MEDS ORDERED: Zofran 4 MG/2 ML VIAL IV ONE (18:13)
[2021-06-21] MEDS ORDERED: Zofran 4 MG/2 ML VIAL ONE (18:14)
[2021-06-21 18:25] LABS: Appearance SLIGHTLY CLOUDY (CLEAR); Bilirubin NEGATIVE (NEGATIVE); Blood MODERATE Ery/ul (0-5); Epithelial Cells RARE /HPF (FEW); Glucose NEGATIVE (NEGATIVE); Ketones NEGATIVE (NEGATIVE); Leukocyte Esterase TRACE (NEGATIVE); Mucus SLIGHT /HPF (NEGATIVE); Nitrite NEGATIVE (NEGATIVE); Protein,Urine Dip 30 (Negative); Specific Gravity 1.025 (1.005-1.025); Urobilinogen 2 mg/dL (0-1)
[2021-06-21 18:26] LABS: Bacteria FEW /HPF (NEGATIVE)
[2021-06-21 18:36] LABS: ALBUMIN 4.8 g/dL (3.5-5.0); ANION GAP 16.5 MEQ/L (5-15); BILIRUBIN,TOTAL 0.8 mg/dL (0.2-1.3); Calcium 9.5 mg/dL (8.4-10.2); Creatinine 1 1.13 mg/dL (0.52-1.04); EST GLOMERULAR FILTRATION RATE 54.6 ML/MIN; Potassium 3.7 mmol/L (3.5-5.1); Total Protein 7.6 g/dL (6.3-8.2)
[2021-06-21] MEDS ORDERED: SUBLIMAZE 100 MCG/2 ML IV ONE (18:42)
[2021-06-21] MEDS ORDERED: SUBLIMAZE 100 MCG/2 ML ONE (18:42)
[2021-06-21 18:46] LABS: Barbiturate,Urine NEGATIVE (NEGATIVE); Benzodiazepine,Urine NEGATIVE (NEGATIVE); Cocaine,Urine NEGATIVE (NEGATIVE); Methadone,Urine NEGATIVE (NEGATIVE); Opiate,Urine NEGATIVE (NEGATIVE); PCP,Urine NEGATIVE (NEGATIVE); THC,Urine POSITIVE (NEGATIVE)
[2021-06-21 19:40] LABS: Amphetamine,Urine POSITIVE (NEGATIVE)
[2021-06-21 20:08] VITALS: BP 139/93; PULSE 85
[2021-06-21 20:09] VITALS: O2SAT 99
--- NOTE | 2021-06-22 08:43 | XRAY ---
Indication: Abdomen pain, low back pain, and bloody stools. Multiple contiguous axial images obtained through the abdomen and pelvis without contrast. Comparison: October 04, 2020 Lung bases again not demonstrates a few tiny calcified granulomas. New mild bibasilar dependent atelectasis. No infiltrate or effusion. Heart not enlarged. Again reported Whipple procedure, cholecystectomy, appendectomy, and hysterectomy. Noncontrasted stomach and bowel loops appear nonobstructed again with mild diffuse fecal debris. Stable minimal pneumobilia and chronic pancreatitis calcifications. No free fluid/air. Remaining liver, spleen, adrenal glands, kidneys, ureters, bladder, and aorta are unremarkable for noncontrast exam. Osseous structures intact again with L4-L5 degenerative disc disease. Impression: 1. Again mild diffuse fecal stasis, postsurgical changes, chronic pancreatitis calcifications, L4-L5 and degenerative changes, and old granulomatous disease. 2. Remaining CT abdomen/pelvis without contrast exam is negative.
== END 2021-06-21 20:18 | disposition home or self-care (01) ==
LOC: ED 17:49
DX: N39.0 Urinary tract infection, site not specified (principal); K59.00 Constipation, unspecified; R10.84 Generalized abdominal pain; F15.10 Other stimulant abuse, uncomplicated; F12.10 Cannabis abuse, uncomplicated; R11.2 Nausea with vomiting, unspecified; Z72.0 Tobacco use
CPT/HCPCS: 36000; 36415; 74176; 80053; 80307; 81001; 82150; 83690; 84484; 85025; 87086; 96360; 96374; 96375; 99284; J1885; J2405; J3010; G0480

== ENCOUNTER 2021-06-22 11:53 | Observation (INO) | payer MEDICAID, OTHER ==
[2021-06-22] MEDS ORDERED: PROTONIX 40 MG IV IV ONE ×2 (12:02→12:44)
[2021-06-22] MEDS ORDERED: BENADRYL 50 MG/ML IV ONE (12:02)
[2021-06-22] MEDS ORDERED: Sodium Chloride 0.9% 1000 ML 1,000 ML IV STA (12:02)
[2021-06-22] MEDS ORDERED: Inapsine 5 MG/2 ML IV ONE (12:02)
[2021-06-22] MEDS ORDERED: XYLOCAINE VISCOUS 2% 20 ML CUP PO ONE (12:05)
[2021-06-22] MEDS ORDERED: MAALOX ES 30 ML UNIT DOSE PO ONE (12:05)
[2021-06-22] MEDS ORDERED: MAALOX ES 30 ML UNIT DOSE ONE (12:08)
[2021-06-22] MEDS ORDERED: XYLOCAINE HCl Viscous ONE (12:08)
[2021-06-22] MEDS ORDERED: Inapsine 5 MG/2 ML ONE (12:44)
[2021-06-22] MEDS ORDERED: BENADRYL 50 MG/ML ONE (12:44)
[2021-06-22] MEDS ORDERED: Sodium Chloride 0.9% 1000 ML 1,000 ML ONE (12:44)
--- NOTE | 2021-06-22 13:13 | ERPHSYRPT ---
- History of Present Illness Time Seen by Provider: 06/22/21 12:04 Historian: patient Exam Limitations: no limitations Physician History: 46 years old female with history of chronic pancreatitis status post Whipple procedure with chronic abdominal pain was evaluated yesterday for pain upper abdomen presented back with same pain today radiating to the back with associat ed nausea. Patient reports she is not able to get any relief. She does have UTI but did not take her medication prescribed to [facility] yesterday. No fever or chills reported. Reports having 2 bowel movements today. Timing/Duration: day(s) (2), gradual onset, worse Activities at Onset: rest Quality: sharpness, stabbing Abdominal Pain Onset Location: RUQ, epigastric, periumbilical Pain Radiation: back Severity of Pain-Max: severe Severity of Pain-Current: severe Modifying Factors: Worsens With: coughing, movement, palpation Associated Symptoms: denies symptoms Previous symptoms: no prior history Allergies/Adverse Reactions: Iodinated Contrast Media Allergy (Verified 06/22/21 12:01) Hx Tetanus, Diphtheria Vaccination/Date Given: Yes Hx Influenza Vaccination/Date Given: Yes Hx Pneumococcal Vaccination/Date Given: No Travel Risk - Vaccine Status Have you recieved a Covid-19 vaccination: No - Review of Systems Constitutional: No Symptoms Eyes: No Symptoms Ears, Nose, & Throat: No Symptoms Respiratory: No Symptoms Cardiac: No Symptoms Abdominal/Gastrointestinal: Abdominal Pain, Nausea Genitourinary Symptoms: No Symptoms Musculoskeletal: No Symptoms Skin: No Symptoms Neurological: No Symptoms Psychological: No Symptoms Endocrine: No Symptoms Hematologic/Lymphatic: No Symptoms Immunological/Allergic: No Symptoms - Past Medical History Pertinent Past Medical History: Yes Endocrine Medical History: Thyroid Cancer GI Medical History: Pancreatitis Female Reproductive Disorders: Cervical Cancer - Past Surgical History Past Surgical History: Yes Gastrointestinal: Appendectomy, Cholecystectomy Female Surgical History: Hysterectomy Other Surgical History: whipple surgery - Social History Smoking Status: Light tobacco smoker How long have you smoked: years Exposure to second hand smoke: Yes Drug Use: marijuana Patient Lives Alone: No - Nursing Vital Signs Nursing Vital Signs: Initial Vital Signs Temperature 98.2 F 06/22/21 11:59 Pulse Rate 100 H 06/22/21 11:59 Respiratory Rate 18 06/22/21 11:59 Blood Pressure 156/98 06/22/21 11:59 O2 Sat by Pulse Oximetry 98 06/22/21 11:59 Pain Scale Pain Intensity 6 - Physical Exam General Appearance: no apparent distress, alert Eye Exam: PERRL/EOMI, eyes nml inspection Ears, Nose, Throat Exam: normal ENT inspection, TMs normal, pharynx normal Neck Exam: normal inspection, non-tender, supple, full range of motion Respiratory Exam: normal breath sounds, lungs clear Cardiovascular Exam: regular rate/rhythm, normal heart sounds Gastrointestinal/Abdomen Exam: soft, normal bowel sounds, tenderness (Generalized more in the upper abdomen) Back Exam: normal inspection, normal range of motion Extremity Exam: normal inspection, normal range of motion, pelvis stable Neurologic Exam: alert, oriented x 3, cooperative Skin Exam: normal color SpO2 Interpretation: normal SpO2: 94 O2 Delivery: Room Air Ordered Tests: Active Orders 24 hr Category Date Time Status IV Insertion STAT Care 06/22/21 12:02 Active NPO (ED) STAT Care 06/22/21 12:02 Active ABDOMEN AND PELVIS W/0 CONTRAS [CT] Stat Exams 06/22/21 14:20 Completed CBC W DIFF Stat Lab 06/22/21 12:02 Completed CMP Routine Lab 06/22/21 12:15 Completed CULTURE,URINE Stat Lab 06/22/21 12:03 Received LIPASE Routine Lab 06/22/21 12:15 Completed TROPONIN Q3H Lab 06/22/21 12:15 Completed TROPONIN Q3H Lab 06/23/21 00:15 Ordered UA W/RFX UR CULTURE Stat Lab 06/22/21 12:03 Completed Medication Summary Discontinued Medications Generic Name Dose Route Start Last Admin Trade Name Senq PRN Reason Stop Dose Admin Al Hydrox/Mg Hydrox/Simethicone 30 ml 06/22/21 12:05 06/22/21 12:09 Mag Hydrox/Al Hydrox/Simeth 30 Ml Udcup PO 06/22/21 12:06 30 ml STAT ONE Administration Al Hydrox/Mg Hydrox/Simethicone Confirm 06/22/21 12:08 Mag Hydrox/Al Hydrox/Simeth 30 Ml Udcup Administered 06/22/21 12:09 Dose 30 ml .ROUTE .STK-MED ONE Diphenhydramine HCl 25 mg 06/22/21 12:02 06/22/21 12:45 Diphenhydramine Hcl 50 Mg/Ml Vial IV 06/22/21 12:03 25 mg STAT ONE Administration Diphenhydramine HCl Confirm 06/22/21 12:44 Diphenhydramine Hcl 50 Mg/Ml Vial Administered 06/22/21 12:45 Dose 50 mg .ROUTE .STK-MED ONE Droperidol 1.25 mg 06/22/21 12:02 06/22/21 12:45 Droperidol 5 Mg/2 Ml Vial IV 06/22/21 12:03 1.25 mg STAT ONE Administration Droperidol Confirm 06/22/21 12:44 Droperidol 5 Mg/2 Ml Vial Administered 06/22/21 12:45 Dose 5 mg .ROUTE .STK-MED ONE Sodium Chloride 1,000 mls @ 999 mls/hr 06/22/21 12:02 06/22/21 14:53 Sodium Chloride 0.9% 1000 Ml IV 06/22/21 13:02 Infused .Q1H1M STA Infusion Sodium Chloride Confirm 06/22/21 12:44 Sodium Chloride 0.9% 1000 Ml Administered 06/22/21 12:45 Dose 1,000 mls @ ud .ROUTE .STK-MED ONE Lidocaine HCl 20 ml 06/22/21 12:05 06/22/21 12:09 Lidocaine Hcl 20 Ml Cup PO 06/22/21 12:06 20 ml STAT ONE Administration Lidocaine HCl Confirm 06/22/21 12:08 Lidocaine Hcl Viscous 1 Ml Administered 06/22/21 12:09 Dose 20 ml .ROUTE .STK-MED ONE Pantoprazole Sodium 40 mg 06/22/21 12:02 06/22/21 12:45 Pantoprazole 40 Mg Vial IV 06/22/21 12:03 40 mg STAT ONE Administration Pantoprazole Sodium Confirm 06/22/21 12:44 Pantoprazole 40 Mg Vial Administered 06/22/21 12:45 Dose 40 mg IV .STK-MED ONE Lab/Rad Data: Laboratory Result Diagrams 06/22/21 12:02 06/22/21 12:15 Laboratory Results 06/22/21 06/22/21 06/22/21 Range/Units 12:15 12:03 12:02 WBC 12.7 H (4.0-10.5) K/mm3 RBC 4.51 (4.1-5.4) M/mm3 Hgb 13.6 (12.0-16.0) gm/dl Hct 42.1 (35-47) % MCV 93.3 (78-100) fl MCH 30.2 (26-32) pg MCHC 32.3 (32-36) g/dl RDW 12.6 (11.5-14.0) % Plt Count 247 (150-450) K/mm3 MPV 9.4 (7.5-11.0) fl Gran % 87.5 H (36.0-66.0) % Eos # (Auto) 0.04 (0-0.5) Absolute Lymphs (auto) 0.78 L (1.0-4.6) Absolute Monos (auto) 0.78 (0.0-1.3) Lymphocytes % 6.1 L (24.0-44.0) % Monocytes % 6.1 (0.0-12.0) % Eosinophils % 0.3 (0.00-5.0) % Basophils % 0.0 (0.0-0.4) % Absolute Granulocytes 11.13 H (1.4-6.9) Basophils # 0 (0-0.4) Sodium 134 L (137-145) mmol/L Potassium 3.1 L (3.5-5.1) mmol/L Chloride 102 (98-107) mmol/L Carbon Dioxide 19 L (22-30) mmol/L Anion Gap 16.1 H (5-15) MEQ/L BUN 8 (7-17) mg/dL Creatinine 0.67 (0.52-1.04) mg/dL Estimated GFR > 60.0 ML/MIN Glucose 107 H (74-106) mg/dL Calcium 8.6 (8.4-10.2) mg/dL Total Bilirubin 0.90 (0.2-1.3) mg/dL AST 23 (14-36) U/L ALT 19 (0-35) U/L Alkaline Phosphatase 106 (38-126) U/L Troponin I < 0.012 (0.000-0.034) ng/mL Serum Total Protein 7.3 (6.3-8.2) g/dL Albumin 4.4 (3.5-5.0) g/dL Lipase 469 H (23-300) U/L Urine Color YELLOW (YELLOW) Urine Appearance CLEAR (CLEAR) Urine pH 7.0 (5-6) Ur Specific [place] 1.008 (1.005-1.025) Urine Protein NEGATIVE (Negative) Urine Ketones SMALL (NEGATIVE) Urine Blood MODERATE (0-5) Paulo/ul Urine Nitrite NEGATIVE (NEGATIVE) Urine Bilirubin NEGATIVE (NEGATIVE) Urine Urobilinogen NEGATIVE (0-1) mg/dL Ur Leukocyte Esterase TRACE (NEGATIVE) Urine WBC (Auto) 0-2 (0-5) /HPF Urine RBC (Auto) NONE (0-2) /HPF U Epithel Cells (Auto) RARE (FEW) /HPF Urine Bacteria (Auto) RARE (NEGATIVE) /HPF Urine Mucus (Auto) SLIGHT (NEGATIVE) /HPF Urine Culture Reflexed YES (NO) Urine Glucose NEGATIVE (NEGATIVE) mg/dL - Progress Progress: improved, pain not gone completely, re-examined Progress Note: 06/22/21 15:46 46 years old with history of chronic pancreatitis status post Whipple procedure is evaluated for upper abdominal pain. Patient was evaluated yesterday with negative work-up. Patient has tenderness in upper abdomen. Work-up showed white count of 12 and mildly elevated lipase in 400s. Yesterday her white count and lipase were normal. I have given her Inapsine and Benadryl, on reevaluatio n feeling better but pain is not completely resolved. She still have tenderness in the upper abdomen. I have repeated CT abdomen pelvis without contrast which showed early acute pancreatitis in the tail of pancreas. I have discussed with patient about bowel rest, clear liquids and pain medications to go home but she does not feel comfortable and I doubt if I send her home she will might will co me back. I have discussed with Dr. Torres and patient is being admitted for observation, will keep n.p.o., IV fluids and pain medication. Discussed with : Rahat Will see patient in: hospital (observation) Counseled pt/family regarding: lab results, diagnosis, need for follow-up, rad results, smoking cessation - Departure Departure Disposition: Observation Clinical Impression: Acute pancreatitis Condition: Stable Critical Care Time: No Referrals: DOCTOR,NO FAMILY [Primary Care Provider] - Follow up/PCP as directed
[2021-06-22 13:50] LABS: ALBUMIN 4.4 g/dL (3.5-5.0); ALKALINE PHOSPHATASE 106 U/L (38-126); ANION GAP 16.1 MEQ/L (5-15); BLOOD UREA NITROGEN 8 mg/dL (7-17); CHLORIDE 102 mmol/L (98-107); Calcium 8.6 mg/dL (8.4-10.2); Carbon Dioxide 19 mmol/L (22-30); Creatinine 1 0.67 mg/dL (0.52-1.04); EST GLOMERULAR FILTRATION RATE > 60.0 ML/MIN; Glucose 107 mg/dL (74-106); LIPASE 469 U/L (23-300); Potassium 3.1 mmol/L (3.5-5.1); SGOT/AST 23 U/L (14-36); SGPT/ALT 19 U/L (0-35); SODIUM 134 mmol/L (137-145); TROPONIN < 0.012 ng/mL (0.000-0.034); Total Protein 7.3 g/dL (6.3-8.2)
[2021-06-22 13:50] LABS: Absolute Neutrophil Ct (ANC) 11.13 (1.4-6.9); Basophil (Absolute #) 0 (0-0.4); Eosinophil % 0.3 % (0.00-5.0); Eosinophil (Absolute #) 0.04 (0-0.5); Hematocrit 42.1 % (35-47); Hemoglobin 13.6 gm/dl (12.0-16.0); Lymphocyte (Absolute #) 0.78 (1.0-4.6); Lymphocytes % 6.1 % (24.0-44.0); Mean Cell Volume 93.3 fl (78-100); Mean Corpuscular Hemoglobin 30.2 pg (26-32); Mean Corpuscular Hgb Concent. 32.3 g/dl (32-36); Mean Platelet Volume 9.4 fl (7.5-11.0); Monocyte (Absolute #) 0.78 (0.0-1.3); Monocytes % 6.1 % (0.0-12.0); Neutrophil % 87.5 % (36.0-66.0); Platelet Count 247 K/mm3 (150-450); Red Blood Count 4.51 M/mm3 (4.1-5.4); Red Cell Distribution Width 12.6 % (11.5-14.0); White Blood Count 12.7 K/mm3 (4.0-10.5)
--- NOTE | 2021-06-22 14:45 | XRAY ---
Indication: Abdomen pain, nausea and vomiting. Blood in urine and bowel. Multiple contiguous axial images obtained through the abdomen and pelvis without contrast. Comparison: One day earlier. Lung bases demonstrate stable tiny calcified granulomas and minimal dependent atelectasis. Heart is not enlarged. Study is slightly degraded by respiration artifact. Again previous reported Whipple procedure, cholecystotomy, appendectomy, hysterectomy, minimal pneumobilia, and chronic pancreatitis calcifications. Distal small bowel now demonstrates intraluminal radiopacity presumed ingested medication/bismuth. Remaining noncontrasted stomach and bowel loops remain nonobstructed again with mild diffuse fecal debris throughout. Query pancreatic tail stranding as seen with mild/early pancreatitis versus respiration artifact. No free fluid/air. Remaining liver, spleen, adrenal glands, kidneys, ureters, bladder, and aorta are unremarkable for noncontrast exam. Osseous structures intact again with L4-S1 degenerative changes. Impression: 1. Mild respiration artifact. 2. Query pancreatic tail stranding/pancreatitis versus respiration artifact. 3. Again mild diffuse fecal stasis, post surgical changes, chronic pancreatitis calcifications, chronic bony findings, and old granulomatous disease.
[2021-06-22 15:08] LABS: Appearance CLEAR (CLEAR); Bilirubin NEGATIVE (NEGATIVE); Blood MODERATE Ery/ul (0-5); Epithelial Cells RARE /HPF (FEW); Glucose NEGATIVE (NEGATIVE); Ketones SMALL (NEGATIVE); Leukocyte Esterase TRACE (NEGATIVE); Mucus SLIGHT /HPF (NEGATIVE); Nitrite NEGATIVE (NEGATIVE); Protein,Urine Dip NEGATIVE (Negative); Specific Gravity 1.008 (1.005-1.025); Urobilinogen NEGATIVE mg/dL (0-1); WBC 0-2 /HPF (0-5)
[2021-06-22 15:12] LABS: Bacteria RARE /HPF (NEGATIVE)
[2021-06-22] MEDS ORDERED: MORPHINE SULFATE 4 MG INJ IV PRN (15:49)
[2021-06-22] MEDS ORDERED: DUONEB 0.5-3 MG/3 ml Neb IH PRN (15:49)
[2021-06-22] MEDS ORDERED: Zofran 4 MG/2 ML VIAL IV PRN (15:49)
[2021-06-22] MEDS ORDERED: MORPHINE SULFATE 4 MG INJ IV ONE (18:10)
[2021-06-22] MEDS: Sodium Chloride 0.9% W/ 20 mEq KCl/LITER 1,000 ML IV SCH (18:15)
[2021-06-22 19:00] LABS: INFLUENZA A NEGATIVE (NEGATIVE); INFLUENZA B NEGATIVE (NEGATIVE); RESPIRATORY SYNCTIAL VIRUS NEGATIVE (Negative); SARS-CoV-2 Xpert Express NEGATIVE (NEGATIVE)
[2021-06-22] MEDS ORDERED: MORPHINE 30 MG/30 ML PCA IV PRN (20:01)
[2021-06-23] MEDS: Sodium Chloride 0.9% W/ 20 mEq KCl/LITER 1,000 ML IV SCH ×3 (03:30→19:04)
[2021-06-23 05:41] LABS: Absolute Neutrophil Ct (ANC) 6.25 (1.4-6.9); Basophil (Absolute #) 0.01 (0-0.4); Eosinophil (Absolute #) 0.08 (0-0.5); Hematocrit 45.1 % (35-47); Hemoglobin 14.6 gm/dl (12.0-16.0); Lymphocyte (Absolute #) 1.13 (1.0-4.6); Lymphocytes % 13.9 % (24.0-44.0); Mean Cell Volume 92.6 fl (78-100); Mean Corpuscular Hgb Concent. 32.4 g/dl (32-36); Mean Platelet Volume 10.1 fl (7.5-11.0); Monocyte (Absolute #) 0.66 (0.0-1.3); Monocytes % 8.1 % (0.0-12.0); Neutrophil % 76.9 % (36.0-66.0); Platelet Count 259 K/mm3 (150-450); Red Blood Count 4.87 M/mm3 (4.1-5.4); Red Cell Distribution Width 12.7 % (11.5-14.0); White Blood Count 8.1 K/mm3 (4.0-10.5)
[2021-06-23 06:13] LABS: ALBUMIN 4.3 g/dL (3.5-5.0); ALKALINE PHOSPHATASE 98 U/L (38-126); ANION GAP 15.5 MEQ/L (5-15); BLOOD UREA NITROGEN 8 mg/dL (7-17); CHLORIDE 103 mmol/L (98-107); Calcium 8.5 mg/dL (8.4-10.2); Carbon Dioxide 22 mmol/L (22-30); Creatinine 1 0.67 mg/dL (0.52-1.04); EST GLOMERULAR FILTRATION RATE > 60.0 ML/MIN; Glucose 66 mg/dL (74-106); Potassium 3.7 mmol/L (3.5-5.1); SGOT/AST 17 U/L (14-36); SGPT/ALT 18 U/L (0-35); SODIUM 137 mmol/L (137-145); Total Protein 7.3 g/dL (6.3-8.2)
[2021-06-23] MEDS ORDERED: MAALOX ES 30 ML UNIT DOSE PO PRN (07:28)
[2021-06-23] MEDS: PROTONIX 40 MG IV IV SCH (09:48)
[2021-06-23] MEDS: MORPHINE 30 MG/30 ML PCA IV PRN ×2 (10:18→20:18)
[2021-06-24] MEDS: Sodium Chloride 0.9% W/ 20 mEq KCl/LITER 1,000 ML IV SCH ×3 (02:36→19:39)
[2021-06-24 06:02] LABS: Hematocrit 41.4 % (35-47); Hemoglobin 13.4 gm/dl (12.0-16.0); Mean Cell Volume 93.5 fl (78-100); Mean Corpuscular Hemoglobin 30.2 pg (26-32); Mean Corpuscular Hgb Concent. 32.4 g/dl (32-36); Mean Platelet Volume 10.1 fl (7.5-11.0); Platelet Count 248 K/mm3 (150-450); Red Blood Count 4.43 M/mm3 (4.1-5.4); Red Cell Distribution Width 12.4 % (11.5-14.0); White Blood Count 6.9 K/mm3 (4.0-10.5)
[2021-06-24 06:23] LABS: ALBUMIN 3.6 g/dL (3.5-5.0); ALKALINE PHOSPHATASE 79 U/L (38-126); AMYLASE 35 U/L (30-110); ANION GAP 11.2 MEQ/L (5-15); BLOOD UREA NITROGEN 6 mg/dL (7-17); CHLORIDE 97 mmol/L (98-107); Calcium 8.2 mg/dL (8.4-10.2); Carbon Dioxide 29 mmol/L (22-30); EST GLOMERULAR FILTRATION RATE > 60.0 ML/MIN; Glucose 99 mg/dL (74-106); LIPASE 50 U/L (23-300); Potassium 4.3 mmol/L (3.5-5.1); SGOT/AST 14 U/L (14-36); SGPT/ALT 14 U/L (0-35); SODIUM 134 mmol/L (137-145); Total Protein 6.5 g/dL (6.3-8.2)
[2021-06-24] MEDS: MORPHINE 30 MG/30 ML PCA IV PRN (09:48)
[2021-06-24] MEDS: PROTONIX 40 MG IV IV SCH (10:48)
[2021-06-24 19:58] VITALS: BP 124/81; PULSE 89
[2021-06-24 22:10] VITALS: O2SAT 94
--- NOTE | 2021-06-26 08:30 | HP ---
CHIEF COMPLAINT: Abdominal pain. HISTORY OF PRESENT ILLNESS: The patient has a history of chronic pancreatitis. She had a Whipple procedure and stent placement in her pancreas. The patient reports the next time she had significant episode she was fed up enough to remove the rest of the pancreas and spleen. 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 She has had appendectomy, cholecystectomy and hysterectomy. MEDICATIONS: She takes no medications on a regular basis at home. ALLERGIES: IODINATED CONTRAST MATERIAL. PHYSICAL EXAMINATION: The patient's vital signs showed temperature 98.2F, pulse 100, respiratory rate 18 and blood pressure 156/98. O2 saturation 98% on room air. HEENT: Normocephalic, atraumatic. Pupils equal round reactive to light. Extraocular movements intact. Oropharynx is slightly dry. NECK: Supple without lymphadenopathy, thyromegaly or JVD. CHEST: Clear to auscultation. HEART: Regular rate and rhythm without murmurs, rubs or gallops. ABDOMEN: Diffusely tender with no palpable masses. EXTREMITIES: Without cyanosis, clubbing or edema. NEUROLOGIC: The patient is alert and oriented x3 with no focal deficits noted. LAB DATA AND TESTS: The patient's laboratory studies have shown COVID, respiratory syncytial virus and influenza negative. Her glucose was 107. Her lipase was 130. She had been evaluated actually the previous day in the emergency room and let go home at that time and this is a representation to the emergency room. White count was 12.7, hemoglobin 13.6, PLT count 247,000. Repeat showed lipase 469 with the highest in our lab being 300 and abnormal. Troponin was normal. UA was normal. CBC was normal. She had a CT scan showing mild respiratory artifact, possible pancreatic stranding, pancreatitis versus respiratory artifact, mild fecal stasis is seen. ASSESSMENT: The patient has been admitted to the hospital for gut rest, IV fluids and pain medication. On discussion with the patient this morning, she had no need for transfer to another facility for what we are doing and essentially already done for her otherwise. She is not a candidate to be transferred for more aggressive management at least at this time. The patient has requested a surgical consultation which we will comply with and otherwise will continue her on her fluids, pain medications and gently increase her flow of intake as she continues to improve. The patient is currently on MMA FIGHTER with morphine. According to the nurse who has been watching her, she has been keeping most of the day on the medications and when she wakes she complains of pain. Even during my examination with the patient no obvious issue or any other evidence that she is hurting that much.
--- NOTE | 2021-06-26 10:52 | CONS ---
CONSULT DATE: 06/24/2021 REASON FOR CONSULT: Pancreatitis. HISTORY: The patient is a 46-year-old. She has been here about two days. She had mid, upper abdominal and epigastric pain radiating to her left scapula. It has been intermittently an 8 or 9 almost to 10. She has been on IV narcotics. Her IV narcotics ran out here and she is about an hour out and she started to hurt severely again. She is seen and examined at the bedside. She does not appear to be toxic. She looks her stated age. I think I have seen her quite some while ago. [place] a while and then is back here at this time admitted here through the emergency room. She had severe recurrent pancreatitis for a couple of years. She presented down in [place] basically with refractory pancreatitis. She apparently had a Whipple, head and portion of the body of the pancreas resected in 2016. Apparently a "specialist" came to that facility and performed that. She subsequently came back in 2019 and she states that they replaced her stent tubes through her umbilicus. Certainly unclear what they did. With the Whipple she would have a Solomon-en-Y. It would tough to do any type of ERCP although sometimes it is possible. She had stents from 2016 to 2019. Regardless, she has done fairly well from to 2016 to 2019 and then in 2019 she had these stents replaced. Since that time she was doing okay until about three months ago in which she started having recurrent epigastric pain. Her CT scan showed pancreatitis. Lipase was 400 with 300 being normal. Her white count was normal. On abdominal exam today, she is soft with no palpable mass. She is not sweating. She is not diaphoretic. She has no labored breathing. The rest of her CT is certainly unremarkable. IMPRESSION: It certainly sounds like she is having pancreatitis and she already had a proximal resection. She still has probably about half of her pancreas left. It is unclear ERCP is possible on this lady. There is nothing to offer this lady in the [facility]. ERCP's are sporadic here at a secondary hospital and certainly a very odd or unusual situation like this would not be possible and [facility] residual pancreas with recurrent pancreatitis.
== END 2021-06-24 22:00 ==
LOC: ED 11:53 → MED SURG 19:47
PROVIDERS: ADMIT Family Medicine; ATTEND Family Medicine
DX: K85.90 Acute pancreatitis without necrosis or infection, unspecified (principal); R79.89 Other specified abnormal findings of blood chemistry; Z20.828 Contact with and (suspected) exposure to other viral communicable diseases; Z85.850 Personal history of malignant neoplasm of thyroid; Z85.41 Personal history of malignant neoplasm of cervix uteri
CPT/HCPCS: 0241U; 36000; 36415; 74176; 80053; 81001; 82150; 83690; 84484; 85025; 85027; 87086; 94762; 96360; 96374; 96375; 99285; G0378; J1200; J2270; A9270-GY